=== PATIENT | female | born 1995 | race Caucasian/White ===

== ENCOUNTER 2017-06-15 16:42 | Emergency (ER) | payer BC, OTHER ==
[~2017-06-15] VITALS: Ht 175.3 cm; Wt 93.6 kg
[~2017-06-15 16:42] MED LIST: Z.0.BCPILL PO
[2017-06-15 16:59] VITALS: BP 154/91; PULSE 94; RESP 18; TEMP 99.7; O2SAT 98
[2017-06-15] MEDS ORDERED: NORG0.25 PO (18:22)
--- NOTE | 2017-06-15 19:08 | PD ---
HPI Chief Complaint: Medical Service Representative Problem/Complaint Time Seen by Provider: 18:24 Travel History International Travel<30 days: No Contact w/Intl Traveler<30days: No Traveled to known affect area: No History of Present Illness HPI Patient is a 21-year-old female who presents the emergency room with complaints of abnormal skin and vagina. Patient reports that for the past few years, she has noticed an abnormal tissue to her vagina. Patient reports that she normally notices extra tissue when she has sexual intercourse. Patient reports that this extra tissue has been bothering her over the past few days. Patient does have an appointment with [facility] early and may as she has never seen an OB/ [facility] in the past. Patient with no fever chills, reports that she has had scant vaginal discharge. Patient is sexually active, patient with no abdominal pain, no nausea or vomiting this time. PFSH Past Medical History Medical History: Denies Significant Hx Diminished Hearing: No Immunizations Current: No Influenza Vaccination: No ?: Not LMP: 06/12/17 Past Surgical History Oral Surgery: Yes ([place] teeth) Social History Alcohol Use: Yes (Occ.) Tobacco Use: No Substance Use: No Allergies-Medications (Allergen,Severity, Reaction): Coded Allergies: No Known Allergies (Verified , 07/25/15) Reported Meds & Prescriptions Reported Meds & Active Scripts Active Diflucan (Fluconazole) 150 Mg Tab 150 Mg PO ONCE Reported Norgestimate-Ethinyl Estradiol 0.25-35 Mg-Mcg Tab 1 Tab PO DAILY Review of Systems General / Constitutional: No: Fever Eyes: No: Visual changes HENT: No: Headaches Cardiovascular: No: Chest Pain or Discomfort Respiratory: No: Shortness of Breath Gastrointestinal: No: Abdominal Pain Genitourinary: Positive: Discharge, No: Dysuria Musculoskeletal: No: Pain Skin: No Rash Neurologic: No: Weakness Psychiatric: No: Depression Endocrine: No: Polydipsia Hematologic/Lymphatic: No: Easy Bruising Physical Exam Narrative GENERAL: NAD SKIN: Focused skin assessment warm/dry. HEAD: Atraumatic. Normocephalic. EYES: Pupils equal and round. No scleral icterus. No injection or drainage. ENT: No nasal bleeding or discharge. Mucous membranes pink and moist. NECK: Trachea midline. No JVD. CARDIOVASCULAR: Regular rate and rhythm. No murmur appreciated. RESPIRATORY: No accessory muscle use. Clear to auscultation. Breath sounds equal bilaterally. GASTROINTESTINAL: Abdomen soft, non-tender, nondistended. Hepatic and splenic margins not palpable. : pelvic exam performed with RN at bedside, unable to perform pelvic exam secondary to small introitus and pain, her labia does appear inflamed, there is whitish vaginal discharge on exam MUSCULOSKELETAL: No obvious deformities. No clubbing. No cyanosis. No edema. NEUROLOGICAL: Awake and alert. No obvious cranial nerve deficits. Motor grossly within normal limits. Normal speech. PSYCHIATRIC: Appropriate mood and affect; insight and judgment normal. Data Data Last Documented VS Vital Signs Date Time Temp Pulse Resp B/P (MAP) Pulse Ox O2 Delivery O2 Flow Rate FiO2 06/15/17 16:59 99.7 94 18 154/91 (112) 98 Orders Orders Gc And Chlamydia Pcr (06/15/17 18:41) Wet Prep Profile (06/15/17 18:41) Urinalysis - C+S If Indicated (06/15/17 18:41) Ed Urine Pregnancytest Poc (06/15/17 18:41) Gc And Chlamydia Pcr (06/15/17 19:38) Labs Laboratory Tests Test 06/15/17 18:55 Urine Collection Type CLEAN CATCH Urine Color YELLOW Urine Turbidity SL CLOUDY Urine pH 5.5 Urine Specific [place] LESS/EQUAL 1.005 Urine Protein NEG mg/dL Urine Glucose (UA) NEG mg/dL Urine Ketones NEG mg/dL Urine Occult Blood SMALL Urine Nitrite NEG Urine Bilirubin NEG Urine Urobilinogen 0.2 MG/DL Urine Leukocyte Esterase SMALL Urine RBC 0-3 /hpf Urine WBC 6-8 /hpf Urine Squamous Epithelial Cells 0-5 /hpf Urine Bacteria FEW /hpf Microscopic Urinalysis Comment CULT NOT INDICATED MDM Medical Decision Making Medical Screen Exam Complete: Yes Emergency Medical Condition: Yes Medical Record Reviewed: Yes Interpretation(s) Vital Signs Date Time Temp Pulse Resp B/P (MAP) Pulse Ox O2 Delivery O2 Flow Rate FiO2 06/15/17 16:59 99.7 94 18 154/91 (112) 98 Differential Diagnosis cervicitis, bv, uti Narrative Course During the course of the patients emergency department visit, the patients history, examination, and differential diagnosis were reviewed with the patient. The patient does have a tight vaginal introitus -a speculum exam was unable to perform due to this. Patient does have rudolph thick white discharge, her labia does appear swollen. Symptoms could be due to yeast infection. Urine G /C ordered as I am unable to pass speculum through vaginal introitus, patient will follow up with cultures from today. Discussed plan to treat with diflucan for possible yeast infection. 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 , she will return to ER as needed Diagnosis Primary Impression: Tight introitus, acquired or congenital Additional Impression: Yeast infection of the vagina Patient Instructions: General Instructions Additional Instructions: Please follow up with your hired help as soon as possible Return to the ER if symptoms worsen or progress Return to the ER as needed Please follow up with all studies from today Med/Other Pt SpecificInfo: Prescription(s) given Scripts Fluconazole (Diflucan) 150 Mg Tab 150 MG PO ONCE for Infection, #1 TAB 0 Refills Prov: Adelina Starr DO 06/15/17 Disposition: 01 DISCHARGE HOME Condition: Stable Adelina Starr DO Jun 15, 2017 19:08
[2017-06-15 19:21] LABS: BILIRUBIN, URINE NEG (NEG); BLOOD, URINE SMALL (NEG); GLUCOSE,URINE NEG (NEG); KETONE, URINE NEG (NEG); NITRITE,URINE NEG (NEG); PH, URINE 5.5 (5.0-8.5); URINE COLOR YELLOW (YELLW/STRAW); URINE LEUKOCYTE ESTERASE SMALL (NEG)
[2017-06-15 19:39] LABS: BACTERIA, URINE FEW /hpf; SQUAMOUS EPITHELIAL CELL URINE 0-5 /hpf (0-5)
[2017-06-15 19:40] LABS: RBC, URINE 0-3 /hpf (0-3)
[2017-06-15] MEDS ORDERED: DIFL150T PO (19:52)
== END 2017-06-15 20:13 | disposition home or self-care (01) ==
LOC: PHED 16:42
DX: N89.6 Tight hymenal ring (principal); B37.3 Candidiasis of vulva and vagina; Z79.899 Other long term (current) drug therapy
CPT/HCPCS: 81001; 84703; 99283